=== PATIENT | female | born 1965 | race Caucasian/White ===

== ENCOUNTER 2017-05-06 13:03 | Emergency (ER) | payer OTHER ==
[2017-05-06] MEDS ORDERED: Aspirin Low Dose CHEW TAB* 81 MG PO ONE (13:23)
[2017-05-06] MEDS ORDERED: Al Hydrox/Mg Hydrox/Simet LIQ* 30 ML UDC PO ONE ×2 (13:25→19:06)
[2017-05-06] MEDS ORDERED: Famotidine IV* 10 MG/ML 2 ML (20 mg) IV SLOW PU ONE (13:28)
--- NOTE | 2017-05-06 14:07 | RAD ---
Indication: Chest pain; feels like heartburn; now with tingling down the LEFT arm. Comparison: October 16, 2015 chest radiograph. Technique: Upright AP 1347 hours Report: Clear lungs and pleural spaces. Negative for pneumothorax. The heart, pulmonary vasculature, and mediastinal contours are unremarkable. Unremarkable osseous structures and soft tissue contours. IMPRESSION: No evidence for acute intrathoracic disease.
--- NOTE | 2017-05-06 14:34 | ED ---
HPI Chest Pain - HPI Summary HPI Summary: Patient presents to the ED with CC of bilateral upper abdominal pain/upper sternal pain (just under the breast) which are described as a cramping/gnawing, is intermittent, 8/10 and does not radiate. Pain began a few day ago, and she is increasingly becoming nervous over the symptoms. She felt this was chest pain or heartburn. She has had 1x episode of heartburn several years ago, but this feels different. Denies N/V/C/D. Pain is not worse with PO intake. She denies LUTHER, chest pressure, neuro deficits, dizziness, diaphoresis, fevers or chills. Patient denies travel, OCP use or previous PE/DVT. Denies calf pain. Pain is not worse with supine or recumbent position. Pain is not worse with exertion or better with rest. She has not tried anything for her symptoms. PMHx includes hypothyroid. Patient is a smoker. Family hx includes father of [place] at 56. - History of Current Complaint Chief Complaint: EDChestPainROMI Time Seen by Provider: 05/06/17 13:19 Hx Obtained From: Patient Hx Last Menstrual Period: 09/01/12 Onset/Duration: Started Days Ago Timing: Constant Initial Severity: Moderate Current Severity: Mild Pain Intensity: 2 Pain Scale Used: 0-10 Numeric Chest Pain Location: Upper Sternal Chest Pain Radiates: No Character: Dull/Aching Aggravating Factor(s): Nothing Alleviating Factor(s): Nothing Associated Signs and Symptoms: Positive: Chest Pain - Risk Factors Pulmonary Embolism Risk Factors: Negative TAD Risk Factors: Negative - Additional Pertinent History Primary Care Physician: AMRITA - Allergy/Home Medications Allergies/Adverse Reactions: Allergies Allergy/AdvReac Type Severity Reaction Status Date / Time No Known Allergies Allergy Verified 09/01/12 10:17 PMH/Surg Hx/FS Hx/Imm Hx Previously Healthy: Yes Respiratory History: Reports: Hx Chronic Obstructive Pulmonary Disease (COPD) Sensory History: Reports: Hx Contacts or Glasses Opthamlomology History: Reports: Hx Contacts or Glasses - Surgical History Surgery Procedure, Year, and Place: tubal ligation 1987 - Immunization History Hx Pertussis Vaccination: No Immunizations Up to Date: Unable to Obtain/Confirm Infectious Disease History: Denies: Traveled Outside the [place] in Last 30 Days - Social History Occupation: Employed Full-time Lives: With Family Alcohol Use: Daily Alcohol Amount: 6-8 beers daily Hx Substance Use: No Substance Use Type: Reports: None Hx Tobacco Use: Yes Smoking Status (MU): Current Every Day Smoker Type: Cigarettes Review of Systems Constitutional: Negative Eyes: Negative Positive: Chest Pain Respiratory: Negative Positive: Abdominal Pain - mid lower sternal chest pain Positive: no symptoms reported, see HPI Musculoskeletal: Negative Neurological: Negative Psychological: Normal All Other Systems Reviewed And Are Negative: Yes Physical Exam Triage Information Reviewed: Yes Vital Signs On Initial Exam: Initial Vitals Temp Pulse Resp BP Pulse Ox 98.6 F 100 20 136/77 97 05/06/17 13:05 05/06/17 13:05 05/06/17 13:05 05/06/17 13:05 05/06/17 13:05 Vital Signs Reviewed: Yes Appearance: Positive: Well-Appearing, Well-Nourished Skin: Positive: Warm, Skin Color Reflects Adequate Perfusion Head/Face: Positive: Normal Head/Face Inspection Eyes: Positive: Normal, ISAURA, Conjunctiva Clear Neck: Positive: Supple, No Lymphadenopathy Respiratory/Lung Sounds: Positive: Clear to Auscultation, Breath Sounds Present Cardiovascular: Positive: Normal, RRR, Pulses are Symmetrical in both Upper and Lower Extremities Musculoskeletal: Positive: Normal, Strength/ROM Intact Neurological: Positive: Speech Normal Psychiatric: Positive: Normal AVPU Assessment: Alert Diagnostics - Vital Signs Vital Signs Temp Pulse Resp BP Pulse Ox 05/06/17 13:05 98.6 F 100 20 136/77 97 - Laboratory Result Diagrams: 05/06/17 14:30 05/06/17 14:30 Lab Statement: Any lab studies that have been ordered have been reviewed, and results considered in the medical decision making process. Chest Pain Course/Dx - Course Course Of Treatment: Patient is evaluated for cramping epigastric/mid lower sternal pain x 2 days. Evaluated for STEMI/NSTEMI, vs. CAD, GERD, abdominal pathology or other. EKG NSR. Chest xray shows no acute findings. Risk for CAD moderate as family history + and personal history of smoking. No personal hx of cardiac findings in previous tests. During course of treatment, patient had xray and labs. Xray normal, labs OK however a d-dimer elevated at 736. Wells criteria is moderate risk d/t smoking and with elevated d-dimer, recommendation is to obtain a CTA chest. IMPRESSION: 1. NO PULMONARY ARTERIAL FILLING DEFECT TO SUGGEST PULMONARY EMBOLISM. 2. 0.5 CM LEFT LOWER LOBE LUNG NODULE. THE RECOMMENDATIONS FOR FOLLOWUP AND MANAGEMENT OF. AN INCIDENTALLY DETECTED PULMONARY NODULE LESS THAN 6 MM IN SIZE, IN A PATIENT WITHOUT A. HISTORY OF MALIGNANCY, INCLUDE NO FOLLOWUP FOR A LOW-RISK PATIENT OR OPTIONAL FOLLOWUP CT. IN 12 MONTHS FOR A HIGH RISK PATIENT. Trops x 2 negative. Patient states she feels much improved after Maalox and is requesting to go home with rx. She is given a trial of omeprazole d/t feelings of improvement after given maalox and no acute findings in labs or images. Patient is to follow up with Gastro (referral given) if symptoms of burning or GERD persist and STRONGLY ENCOURAGED to return to the ED if any symptoms of chest pain, pressure or SOB occur. This was explained to patient this was just a trial, and it is not confirmed she has GERD and/or Ulcer. Patient is OK for discharge and all medications are explained. Attending Dr. Crowley agrees with plan. - Chest Pain Differential Diagnosis/HQI/PQRI: ACS, Angina, Chest Wall, GI Disease - Diagnoses Provider Diagnoses: Chest pain Discharge - Discharge Plan Condition: Stable Disposition: HOME Prescriptions: Al Hydrox/Mg Hydrox/Simet LIQ* [Maalox Plus*] 30 ml PO Q6H PRN #300 ml PRN Reason: Pain Omeprazole 40 mg PO DAILY #30 cap Patient Education Materials: Diet for Stomach Ulcers and Gastritis (ED), Gastroesophageal Reflux Disease (ED), Pulmonary Nodules (ED) Referrals: Reynaldo Kelly MD [Medical Doctor] - Trever Borden MD [Primary Care Provider] - Additional Instructions: Follow up with your PCP to evaluate further a pulmonary nodule If you develop any worsening chest pains or discomfort, return to the ED immediately. Omeprazole 40mg x 30 days has been prescribed to you for possible GERD/ Ulcerative symptoms If symptoms do not improve or worsen with this medication, you may return to the ED or follow up with a GI specialist. I have given you a referral. For breakthrough symptoms, take Maalox 30mg up to every 6 hours for any GERD symptoms.
[2017-05-06 14:48] LABS: Hematocrit 46 % (35-47); Hemoglobin 15.7 g/dl (12.0-16.0); Mean Corpuscular HGB Conc 34 g/dl (31-36); Mean Corpuscular Hemoglobin 32 pg (27-31); Mean Corpuscular Volume 92 fL (80-97); Mean Platelet Volume 9 um3 (7.4-10.4); Red Blood Count 4.97 10^6/ul (4.0-5.4); Red Cell Distribution Width 14 % (10.5-15)
[2017-05-06 15:14] LABS: Albumin 3.6 g/dL (3.2-5.2); BUN/Creatinine Ratio 11.8 (8-20); Calcium 9.2 mg/dL (8.6-10.3); EGFR African American 117.3 (>60); EGFR Non-African American 91.2 (>60); Globulin 3.3 g/dL (2-4); Magnesium 2.2 mg/dL (1.9-2.7); Potassium 3.8 mmol/L (3.5-5.0); Total Bilirubin 0.5 mg/dL (0.2-1.0); Total Protein 6.9 g/dL (6.4-8.9)
[2017-05-06] MEDS ORDERED: Iohexol 350* (CONTRAST) 500 ML MDV IV ONE (15:20)
--- NOTE | 2017-05-06 15:50 | RAD ---
HISTORY: Chest pain, elevated d-dimer COMPARISONS: None TECHNIQUE: Multiple contiguous axial CT scans of the chest were obtained after the administration of nonionic intravenous contrast, timed to the pulmonary arterial phase of contrast enhancement.. Coronal and sagittal multiplanar reformations are also submitted for review. FINDINGS: NECK AND THYROID: The lower neck and thyroid are unremarkable. CHEST WALL: There is no lower cervical, axillary, or supraclavicular lymphadenopathy by size criteria. HEART AND PERICARDIUM: The heart is unremarkable. AORTA AND PULMONARY VASCULATURE: There is no pulmonary arterial filling defect to suggest pulmonary embolism. There is no linear filling defect within the aorta to suggest aortic dissection. MEDIASTINUM: There is no mediastinal lymphadenopathy by size criteria. HAYLIE: There are subcentimeter short axis hilar lymph nodes, without lymphadenopathy by size criteria. AIRWAY AND ESOPHAGUS: The airway is unremarkable, without endobronchial filling defect. The esophagus is grossly normal. LUNG PARENCHYMA: There is diffuse centrilobular emphysema change. There is a 0.5 cm nodule of the periphery of the left lower lobe. This is best seen on axial image 43. PLEURA: No pleural abnormalities are noted. UPPER ABDOMEN: The upper abdomen is unremarkable. BONES AND SOFT TISSUES: Mild degenerative changes are noted OTHER: None. IMPRESSION: 1. NO PULMONARY ARTERIAL FILLING DEFECT TO SUGGEST PULMONARY EMBOLISM. 2. 0.5 CM LEFT LOWER LOBE LUNG NODULE. THE RECOMMENDATIONS FOR FOLLOWUP AND MANAGEMENT OF AN INCIDENTALLY DETECTED PULMONARY NODULE LESS THAN 6 MM IN SIZE, IN A PATIENT WITHOUT A HISTORY OF MALIGNANCY, INCLUDE NO FOLLOWUP FOR A LOW-RISK PATIENT OR OPTIONAL FOLLOWUP CT IN 12 MONTHS FOR A HIGH RISK PATIENT. NOTES: SIZE = AVERAGE LENGTH AND WIDTH; HIGH RISK IS DEFINED A HISTORY OF SMOKING OR OTHER KNOW RISK FACTORS FOR LUNG CANCER; LOW RISK IS DEFINED MINIMAL OR ABSENT HISTORY OF SMOKING OR OTHER KNOWN RISK FACTORS. Saul, H, LUISANA Turk, BELEN Jack, et al (2017) "Guidelines for Management of Incidental Pulmonary Nodules Detected on CT Images: From the Fleischner Society 2017." Radiology; 284(1): 228-243. doi:[id number]/[id number]
[2017-05-06 19:47] VITALS: BP 116/67
== END 2017-05-06 19:59 | disposition home or self-care (01) ==
LOC: ED 13:03
DX: R07.9 Chest pain, unspecified (principal); F17.210 Nicotine dependence, cigarettes, uncomplicated; R10.9 Unspecified abdominal pain
CPT/HCPCS: 36415; 71010; 71275; 80053; 82550; 82553; 83735; 83874; 84484; 84702; 85025; 85379; 85610; 93005; 96365; 99284; A9270-GY; Q9967